=== PATIENT | male | born 1990 | race Hispanic/Latino ===

== ENCOUNTER 2018-04-17 19:51 | Emergency (ER) | payer SELFPAY ==
[2018-04-17] MEDS ORDERED: Fluorescein Opthalmic Strip ONE ×2 (20:01→21:41)
[2018-04-17] MEDS ORDERED: Adacel (T-DAP) 0.5 ML SYRINGE ONE (21:07)
--- NOTE | 2018-04-17 21:16 | CT ---
CT ORBITS WITHOUT CONTRAST: 04/17/2018 FINDINGS: The orbits appear intact. No fractures are noted around the orbits, maxilla, nasal bones, or zygomat ic arches. The paranasal sinuses are clear. Each globe appears intact. No opaque foreign bodies ar e seen. The retroorbital areas are normal in appearance. There are a few curious dural calcification s at the anterior aspects of each middle cranial fossae; this certainly is not acute, but longstandin g. IMPRESSION: No acute orbital trauma seen. POS: HOME
== END 2018-04-17 22:26 | disposition short-term general hospital (02) ==
LOC: BURERS 19:51
DX: S05.01XA Injury of conjunctiva and corneal abrasion without foreign body, right eye, initial encounter (principal); W22.8XXA Striking against or struck by other objects, initial encounter
CPT/HCPCS: 70480; 90471; 90715

== ENCOUNTER 2018-11-18 19:01 | Emergency (ER) | payer SELFPAY ==
[2018-11-18] MEDS ORDERED: Ibuprofen 800 MG TAB ONE (19:34)
[2018-11-18] MEDS ORDERED: traMADol HCl 50 MG TAB ONE (19:34)
--- NOTE | 2018-11-18 19:35 | RAD ---
XR Shoulder Lt 3 View STANDARD History: Pain Comparison: None. Findings: There is be area of peripheral calcification objects seen over the left upper lobe. No acut e fracture malalignment. Ribs are intact. Impression: Likely calcified granuloma left upper lobe. No acute osseous abnormality.
== END 2018-11-18 19:32 | disposition home or self-care (01) ==
LOC: BURERS 19:01
DX: S43.422A Sprain of left rotator cuff capsule, initial encounter (principal); X50.9XXA Other and unspecified overexertion or strenuous movements or postures, initial encounter

== ENCOUNTER 2020-11-15 17:50 | Emergency (ER) | payer BC, OTHER, SELFPAY ==
[2020-11-15 18:47] LABS: #Basophils 0.1 thou/uL (0.0-0.2); #Eosinphils 0.2 thou/uL (0.0-0.7); #Lymphocytes 2.3 thou/uL (1.20-3.40); #Monocytes 0.5 thou/uL (0.11-0.59); #Neutrophils 6.2 thou/uL (1.40-6.50); %Basophils 1.3 % (0.0-1.0); %Eosinophils 2.2 % (0.0-10.0); %Lymphocytes 24.6 % (21.0-51.0); %Monocytes 5.6 % (0.0-10.0); %Neutrophils 66.3 % (42.0-75.0); Mean Corpuscular HGB CONC 33.6 g/dL (32.0-36.0); Mean Corpuscular Hemoglobin 30.6 pg (27.0-31.0); Mean Corpuscular Volume 90.9 fL (78.0-98.0); Mean Platelet Volume 8.3 fL (7.4-10.4); Platelet Count 221 thou/uL (130-400); RBC Distribution Width 11.1 % (11.5-14.5); Red Blood Cell (RBC) Count 5.23 mill/uL (4.70-6.10); White Blood Cell (WBC) Count 9.4 thou/uL (4.8-10.8)
[2020-11-15 19:01] LABS: ALT (SGPT) 103 U/L (8-55); AST (SGOT) 52 U/L (5-34); Albumin 4.9 g/dL (3.5-5.0); Alkaline Phosphatase 78 U/L (40-110); Anion Gap 17 mmol/L (10-20); BUN (Urea Nitrogen) 13 mg/dL (8.9-20.6); Bilirubin, Total 0.5 mg/dL (0.2-1.2); Calc. Creatinine Clearance 0 mL/min (70-130); Carbon Dioxide 27 mmol/L (22-29); Chloride 102 mmol/L (98-107); Globulin 3.6 g/dL (2.4-3.5); Glucose 130 mg/dL (70-105); Potassium 3.8 mmol/L (3.5-5.1); Protein, Total 8.5 g/dL (6.0-8.3); Sodium 142 mmol/L (136-145)
[2020-11-15] MEDS ORDERED: Aspirin Chewable 81 MG TAB ONE (19:19)
== END 2020-11-15 20:20 | disposition home or self-care (01) ==
LOC: EDBD 17:50 → BURERS 17:50
DX: R07.9 Chest pain, unspecified (principal)
CPT/HCPCS: 36415; 71045; 80053; 84484; 85025; 93005; 94760